=== PATIENT | male | born 1940 ===

== ENCOUNTER → 2016-04-26 | Outpatient (CLI) | payer MEDICARE, BC ==
[~2016-04-26] MED LIST: DELTASONE20 MG PO; LEVAQUIN750 MG PO; PROAIR RESPICL90 MCG INH; ROBITUSSIN100 MG/5 M PO; TESSALON PERLE100 MG PO; TYLENOL EXTRA500 MG PO; ZYLOPRIM300 MG PO
== END | disposition disaster alternative care site (69) ==
LOC: GRAD 11:02
DX: R13.12 Dysphagia, oropharyngeal phase (principal)
CPT/HCPCS: G8996; G8997; G8998